=== PATIENT | female | born 1995 | race American Indian/Alaskan Native ===

== ENCOUNTER 2019-03-08 06:41 | Emergency (ER) | payer OTHER ==
[2019-03-08 06:51] VITALS: BP 162/84
[2019-03-08] MEDS ORDERED: PEPCID IV ONE (07:40)
[2019-03-08] MEDS ORDERED: DECADRON IV ONE (07:40)
--- NOTE | 2019-03-08 07:40 | Emergency Department Report ---
ED Rash HPI - HPI Chief Complaint: Allergic Reaction Stated Complaint: ALLERGIC REACTION Duration: Today Location: Upper Extremities Suspected Cause: Unknown Rash Symptoms: Yes Itching, Yes Tongue/Oral Swelling, No Facial Swelling, No Breathing Difficulties, No Choking Sensation, No Wheezing/Dyspnea, No Peeling, No Blistering, No Fever, No Lightheaded, No Malaise, No Myalgias Severity: mild Other History: This is a 23-year-old -[place] female who presents to the emergency room with a rash to bilateral upper extremity and difficulty breathing upon awakening this morning. The patient states she ate a salad around recently and wasn't sedated. She does have an extensive allergy to foods. No other prior history. Patient states she took 2 Benadryl prior to arrival which resolved rash and decrease some swelling. Patient states she came in because she recently had aforementioned frenectomy last Friday and couldn't tell if this swelling was related to procedure or allergy. She denies drooling, difficulty swallowing, pruritus. ED Review of Systems ROS: Stated complaint: ALLERGIC REACTION Other details as noted in HPI Constitutional: denies: chills, fever ENT: throat pain. denies: ear pain Respiratory: denies: cough, shortness of breath, wheezing Cardiovascular: denies: chest pain, palpitations Gastrointestinal: denies: abdominal pain, nausea, diarrhea Skin: rash. denies: lesions Neurological: denies: headache, weakness, paresthesias Psychiatric: denies: anxiety, depression ED Past Medical Hx - Surgical History Additional Surgical History: adenoidectomy - Social History Smoking Status: Current Every Day Smoker - Medications Home Medications: Home Medications Medication Instructions Recorded Confirmed Last Taken Type Clindamycin HCl [Clindamycin ORAL] 300 mg PO TID #30 capsule 09/10/14 Unknown Rx Ibuprofen [Motrin 800 MG tab] 800 mg PO Q8H PRN #20 tablet 09/10/14 Unknown Rx Ibuprofen [Motrin] 600 mg PO Q8H PRN #12 tablet 06/16/16 Unknown Rx Famotidine [Pepcid] 40 mg PO QHS #30 tablet 03/08/19 Unknown Rx Prednisone [predniSONE 10 mg 10 mg PO .TAPER #1 tab.ds.pk 03/08/19 Unknown Rx (6-Day Pack, 21 Tabs)] hydrOXYzine PAMOATE [Vistaril] 25 mg PO Q6HR PRN #15 capsule 03/08/19 Unknown Rx Rash Exam - Exam General: Vital signs noted. No distress. Alert and acting appropriately. HEENT: Yes Perioral Edema, No Periorbital Edema, No Conjuctival Injection, No Chemosis, No Tongue Edema, No Uvular Edema, No Compromised Airway, No Drooling Lungs: Yes Good Air Exchange (Normal Breath Sounds), No Wheezes, No Ronchi, No Stridor, No Cough, No Labored Respirations, No Retractions, No Use of Accessory Muscles, No Other Abnormal Lung Sounds Heart: Yes Regular, No Murmur Skin: No Urticarial Rash, No Maculopapular Rash, No Morbilliform rash, No Bulla(e), No Excoriations, No Weeping, No Tenderness, No Erythema, No Edema, No Encrustations, No Other Other: Positive: Abdomen Normal ED Course Vital Signs 03/08/19 06:49 Temperature 98.0 F Pulse Rate 91 H Respiratory 18 Rate Blood Pressure 162/84 O2 Sat by Pulse 95 Oximetry ED Medical Decision Making - Medical Decision Making Patient was examined by me. Vitals are normal and patient is in no acute distress. There is mild perioral edema. IV sited initiated and given pepcid and dexamethasone. Patient observed for 1 hour. Reports feeling better and rash resolved. Start pepcid, vistaril, and prednisone pack for prophylaxis. Plan discussed with patient to discharge home and treat outpatient. He agrees with ER plan. Patient discharged home in stable condition. Follow up with PCP in 2-3 days. Critical care attestation.: If time is entered above; I have spent that time in minutes in the direct care of this critically ill patient, excluding procedure time. ED Disposition Clinical Impression: Allergic reaction to food Qualifiers: Encounter type: initial encounter Qualified Code(s): T78.1XXA - Other adverse food reactions, not elsewhere classified, initial encounter Anaphylactic reaction due to food Qualifiers: Encounter type: initial encounter Qualified Code(s): T78.00XA - Anaphylactic reaction due to unspecified food, initial encounter Disposition: TO HOME OR SELFCARE Is pt being admited?: No Does the pt Need Aspirin: No Condition: Stable Instructions: Food Allergy (ED), Anaphylaxis (ED) Additional Instructions: Complete steroids as prescribed. Return to the emergency room if drooling and/or difficulty swallowing. Prescriptions: Famotidine [Pepcid] 40 mg PO QHS #30 tablet Prednisone [predniSONE 10 mg (6-Day Pack, 21 Tabs)] 10 mg PO .TAPER #1 tab.ds.pk hydrOXYzine PAMOATE [Vistaril] 25 mg PO Q6HR PRN #15 capsule PRN Reason: Itching Referrals: MINNA WORRELL MD [Staff Physician] - 3-5 Days [facility] [Provider Group] - 3-5 Days [facility] [Provider Group] - 3-5 Days Forms: Work/School Release Form(ED) Time of Disposition: 09:37
== END 2019-03-08 10:10 | disposition home or self-care (01) ==
LOC: ED 06:41
DX: T78.09XA Anaphylactic reaction due to other food products, initial encounter (principal); F17.200 Nicotine dependence, unspecified, uncomplicated; Z79.899 Other long term (current) drug therapy
CPT/HCPCS: 96374; 96375; 99282; J1100

== ENCOUNTER 2020-09-10 05:42 | Emergency (ER) | payer OTHER ==
[2020-09-10 06:13] VITALS: BP 141/94
--- NOTE | 2020-09-10 06:36 | Emergency Department Report ---
ED ENT HPI - General Chief complaint: Skin/Abscess/Foreign Body Stated complaint: FACE SWOLLEN FROM INFECTED TOOTH Time Seen by Provider: 09/10/20 06:26 Source: patient Mode of arrival: Ambulatory Limitations: No Limitations - History of Present Illness Initial comments: CC: "My jaw is swollen." HPI: THis is a 25-year-old healthy female without significant past medical history who presents with left jaw swelling due to infected tooth. Jaw swelling began 3 days ago. She awakened with swelling of her left jaw. Root canal was recommended sometime ago. However due to busy schedule she was unable to get recommended dental work. She saw dentist 2 days ago who prescribed clindamycin. X-rays in a dentist office revealed dental abscess. Swelling has not worsened. However swelling has not improved. She denies sore throat. She denies difficulty breathing. She has minimal pain in the left jaw. She also stated that her heart was racing for several seconds. She denies chest pain. Denies shortness of breath. She came to the ED because of Internet search. She discovered that severe complications could occur from a dental abscess. MD complaint: other (Swollen face) -: Gradual, days(s) (3) Location: other (Lower jaw lower teeth) Severity: mild Consistency: constant Improves with: none Worsens with: none Context- Dental: history of dental caries - Related Data Previous Rx's Medication Instructions Recorded Last Taken Type Clindamycin HCl [Clindamycin ORAL] 300 mg PO TID #30 capsule 09/10/14 Unknown Rx Ibuprofen [Motrin 800 MG tab] 800 mg PO Q8H PRN #20 tablet 09/10/14 Unknown Rx Ibuprofen [Motrin] 600 mg PO Q8H PRN #12 tablet 06/16/16 Unknown Rx Famotidine [Pepcid] 40 mg PO QHS #30 tablet 03/08/19 Unknown Rx Prednisone [predniSONE 10 mg 10 mg PO .TAPER #1 tab.ds.pk 03/08/19 Unknown Rx (6-Day Pack, 21 Tabs)] hydrOXYzine PAMOATE [Vistaril] 25 mg PO Q6HR PRN #15 capsule 03/08/19 Unknown Rx Allergies Allergy/AdvReac Type Severity Reaction Status Date / Time peanut Allergy Anaphylaxis Verified 09/10/14 21:37 Penicillins Allergy Anaphylaxis Verified 09/10/14 21:38 sesame seed Allergy Anaphylaxis Uncoded 09/10/14 21:37 walnuts Allergy Anaphylaxis Uncoded 09/10/14 21:37 ED Dental HPI - General Chief complaint: Skin/Abscess/Foreign Body Stated complaint: FACE SWOLLEN FROM INFECTED TOOTH Time Seen by Provider: 09/10/20 06:26 Source: patient Mode of arrival: Ambulatory Limitations: No Limitations - Related Data Previous Rx's Medication Instructions Recorded Last Taken Type Clindamycin HCl [Clindamycin ORAL] 300 mg PO TID #30 capsule 09/10/14 Unknown Rx Ibuprofen [Motrin 800 MG tab] 800 mg PO Q8H PRN #20 tablet 09/10/14 Unknown Rx Ibuprofen [Motrin] 600 mg PO Q8H PRN #12 tablet 06/16/16 Unknown Rx Famotidine [Pepcid] 40 mg PO QHS #30 tablet 03/08/19 Unknown Rx Prednisone [predniSONE 10 mg 10 mg PO .TAPER #1 tab.ds.pk 03/08/19 Unknown Rx (6-Day Pack, 21 Tabs)] hydrOXYzine PAMOATE [Vistaril] 25 mg PO Q6HR PRN #15 capsule 03/08/19 Unknown Rx Allergies Allergy/AdvReac Type Severity Reaction Status Date / Time peanut Allergy Anaphylaxis Verified 09/10/14 21:37 Penicillins Allergy Anaphylaxis Verified 09/10/14 21:38 sesame seed Allergy Anaphylaxis Uncoded 09/10/14 21:37 walnuts Allergy Anaphylaxis Uncoded 09/10/14 21:37 ED Review of Systems ROS: Stated complaint: FACE SWOLLEN FROM INFECTED TOOTH Other details as noted in HPI Comment: All other systems reviewed and negative Constitutional: denies: fever, malaise ENT: denies: ear pain, throat pain Respiratory: denies: cough, shortness of breath Cardiovascular: palpitations. denies: chest pain Gastrointestinal: denies: abdominal pain, nausea, vomiting ED Past Medical Hx - Past Medical History Previous Medical History?: No - Surgical History Past Surgical History?: Yes Additional Surgical History: adenoidectomy - Social History Smoking Status: Light Tobacco Smoker Substance Use Type: Alcohol - Medications Home Medications: Home Medications Medication Instructions Recorded Confirmed Last Taken Type Clindamycin HCl [Clindamycin ORAL] 300 mg PO TID #30 capsule 09/10/14 Unknown Rx Ibuprofen [Motrin 800 MG tab] 800 mg PO Q8H PRN #20 tablet 09/10/14 Unknown Rx Ibuprofen [Motrin] 600 mg PO Q8H PRN #12 tablet 06/16/16 Unknown Rx Famotidine [Pepcid] 40 mg PO QHS #30 tablet 03/08/19 Unknown Rx Prednisone [predniSONE 10 mg 10 mg PO .TAPER #1 tab.ds.pk 03/08/19 Unknown Rx (6-Day Pack, 21 Tabs)] hydrOXYzine PAMOATE [Vistaril] 25 mg PO Q6HR PRN #15 capsule 03/08/19 Unknown Rx ED Physical Exam - General Limitations: No Limitations General appearance: alert, in no apparent distress, other (Normal voice no trismus) - Head Head exam: Present: atraumatic, normocephalic - Eye Eye exam: Present: normal appearance - ENT ENT exam: Present: other (Left jaw: Mild edema no edema involving the submandibular or neck region., Gum swelling fluctuance at the left lower jaw) - Neck Neck exam: Present: normal inspection, full ROM - Respiratory Respiratory exam: Present: normal lung sounds bilaterally. Absent: respiratory distress, wheezes, rales, rhonchi, stridor - Cardiovascular Cardiovascular Exam: Present: regular rate, normal rhythm. Absent: systolic mur mur, diastolic murmur, rubs, gallop - GI/Abdominal GI/Abdominal exam: Present: soft, normal bowel sounds. Absent: distended, tenderness, guarding, rebound - Extremities Exam Extremities exam: Present: normal inspection - Back Exam Back exam: Present: normal inspection - Neurological Exam Neurological exam: Present: alert, oriented X3 - Psychiatric Psychiatric exam: Present: normal affect, normal mood - Skin Skin exam: Present: warm, dry, intact, normal color. Absent: rash ED Course Vital Signs 09/10/20 06:11 Temperature 98.1 F Pulse Rate 106 H Respiratory 18 Rate Blood Pressure 141/94 O2 Sat by Pulse 99 Oximetry ED Medical Decision Making - Medical Decision Making Swelling due to dental abscess: Patient does not exhibit signs of airway compromise or sepsis. She will follow-up with dentist after completing her 7- day course of clindamycin. Recommended ice therapy. Critical care attestation.: If time is entered above; I have spent that time in minutes in the direct care of this critically ill patient, excluding procedure time. ED Disposition Clinical Impression: Dental abscess Disposition: -01 TO HOME OR SELFCARE Is pt being admited?: No Does the pt Need Aspirin: No Condition: Stable Instructions: Dental Abscess
== END 2020-09-10 06:40 | disposition home or self-care (01) ==
LOC: ED 05:42
DX: K04.7 Periapical abscess without sinus (principal); F17.200 Nicotine dependence, unspecified, uncomplicated; Z90.89 Acquired absence of other organs; Z79.1 Long term (current) use of non-steroidal anti-inflammatories (NSAID); Z79.2 Long term (current) use of antibiotics; Z79.899 Other long term (current) drug therapy; Z88.0 Allergy status to penicillin; Z91.010 Allergy to peanuts; Z91.018 Allergy to other foods
CPT/HCPCS: 99282